=== PATIENT | male | born 1990 | race Caucasian/White ===

== ENCOUNTER 2019-12-01 03:02 | Emergency (ER) | payer OTHER ==
[~2019-12-01] VITALS: Ht 175.3 cm; Wt 88.5 kg
[2019-12-01 03:06] VITALS: Ht 175.3 cm; Wt 88.5 kg
[2019-12-01 06:54] VITALS: BP 118/75
== END 2019-12-01 06:54 | disposition home or self-care (01) ==
LOC: ED 03:02
DX: S16.1XXA Strain of muscle, fascia and tendon at neck level, initial encounter (principal); Z98.890 Other specified postprocedural states; V46.5XXA Car driver injured in collision with other nonmotor vehicle in traffic accident, initial encounter; Y93.I9 Activity, other involving external motion; Y92.488 Other paved roadways as the place of occurrence of the external cause; Y99.8 Other external cause status
CPT/HCPCS: Q0092